=== PATIENT | female | born 2000 | race Caucasian/White ===

== ENCOUNTER 2018-01-09 15:50 | Emergency (ER) | payer BC ==
[2018-01-09] MEDS ORDERED: Sodium Chloride 0.9% 1000 ML 1,000 ML IV STA (16:25)
[2018-01-09] MEDS ORDERED: Sodium Chloride 0.9% 1000 ML 1,000 ML ONE (16:27)
[2018-01-09 16:34] VITALS: O2SAT 99
[2018-01-09 16:36] LABS: BASOPHIL % 0.3 % (0.0-0.4); Basophil (Absolute #) 0.02 (0-0.4); Eosinophil % 1.1 % (0.00-5.0); Eosinophil (Absolute #) 0.07 (0-0.5); Granulocyte Absolute (ANC) 3.57 (1.4-6.9); Granulocytes % 57.5 % (36.0-66.0); Hematocrit 40.1 % (35-47); Hemoglobin 14.4 gm/dl (12.0-16.0); Lymphocyte (Absolute #) 2.13 (1.0-4.6); Lymphocytes % 34.2 % (24.0-44.0); Mean Cell Volume 89.5 fl (78-100); Mean Corpuscular Hemoglobin 32.1 pg (26-32); Mean Corpuscular Hgb Concent. 35.9 g/dl (32-36); Monocyte (Absolute #) 0.43 (0.0-1.3); Monocytes % 6.9 % (0.0-12.0); Platelet Count 196 K/mm3 (150-450); Red Blood Count 4.48 M/mm3 (4.1-5.4); Red Cell Distribution Width 11.5 % (11.5-14.0); White Blood Count 6.2 K/mm3 (4.0-10.5)
[2018-01-09 16:41] LABS: Appearance CLEAR (CLEAR); Specific Gravity 1.005 (1.005-1.025)
[2018-01-09 16:42] LABS: Bilirubin NEGATIVE (NEGATIVE); Blood NEGATIVE Ery/ul (0-5); Glucose NEGATIVE (NEGATIVE); Ketones NEGATIVE (NEGATIVE); Leukocyte Esterase NEGATIVE (NEGATIVE); Nitrite NEGATIVE (NEGATIVE); Ph 7.5 (5-6); Protein,Urine Dip NEGATIVE (Negative); Urobilinogen NORMAL mg/dL (0-1)
--- NOTE | 2018-01-09 16:43 | ERPHSYRPT ---
- History of Present Illness Time Seen by Provider: 01/09/18 16:22 Historian: patient Exam Limitations: no limitations Patient Subjective Stated Complaint: PT HERE FOR RIGHT LOWER ABD PAIN SINCE YESTERDAY, WORSE WITH MOVEMENT Triage Nursing Assessment: PT ALERT, RESP EASY. SKIN W/D/P. ANBD SOFT, TENDER TO PALPATE Physician History: -This is a 17-year-old white female previously healthy arrives with complaint of right lower quadrant pain, described as sharp worse with movement symptoms since yesterday. She denies any vomiting she does state that she's been had one loose stool. She denies any urinary symptoms. No vaginal discharge. Past medical history negative Past surgical history wisdom teeth Social history patient denies tobacco alcohol or illicit drug use. Timing/Duration: yesterday Activities at Onset: none Quality: sharpness Abdominal Pain Onset Location: RLQ Pain Radiation: no radiation Severity of Pain-Max: moderate Severity of Pain-Current: mild Modifying Factors: Improves With: breathing Associated Symptoms: diarrhea, No back, No chest pain, No diaphoresis, No fever/ chills, No fatigue, No headache, No heartburn, No loss of appetite, No nausea, No neck pain, No rash, No shortness of breath, No syncope, No weakness Previous symptoms: no prior history Allergies/Adverse Reactions: Sulfa (Sulfonamide Antibiotics) Allergy (Verified 01/09/18 16:11) Home Medications: Ferrous Sulfate, Dried [Iron] 159 mg DAILY 01/09/18 [History] Hx Tetanus, Diphtheria Vaccination/Date Given: Yes Hx Influenza Vaccination/Date Given: No Hx Pneumococcal Vaccination/Date Given: No Immunizations Up to Date: Yes - Review of Systems Constitutional: No Fever, No Chills Eyes: No Symptoms Ears, Nose, & Throat: No Symptoms Respiratory: No Cough, No Dyspnea Cardiac: No Chest Pain, No Edema, No Syncope Abdominal/Gastrointestinal: Abdominal Pain (right lower quadrant abdominal pain) , Diarrhea, No Nausea, No Vomiting, No Constipation, No Hematemesis Genitourinary Symptoms: No Symptoms Musculoskeletal: No Back Pain, No Neck Pain Skin: No Rash Neurological: No Dizziness, No Focal Weakness, No Sensory Changes Psychological: No Symptoms Endocrine: No Symptoms All Other Systems: Reviewed and Negative - Past Medical History Pertinent Past Medical History: No Neurological History: No Pertinent History ENT History: No Pertinent History Cardiac History: No Pertinent History Respiratory History: No Pertinent History Endocrine Medical History: No Pertinent History Musculoskeletal History: No Pertinent History GI Medical History: No Pertinent History History: No Pertinent History Psycho-Social History: No Pertinent History Female Reproductive Disorders: No Pertinent History - Past Surgical History Past Surgical History: Yes Other Surgical History: WISDON TEETH - Social History Smoking Status: Never smoker Exposure to second hand smoke: No Drug Use: none Patient Lives Alone: No - Female History Hx Last Menstrual Period: DECEMBER Hx Now: No - Nursing Vital Signs Nursing Vital Signs: Initial Vital Signs Temperature 98.0 F 01/09/18 16:06 Pulse Rate 49 L 01/09/18 16:06 Respiratory Rate 16 01/09/18 16:06 Blood Pressure 120/67 01/09/18 16:06 O2 Sat by Pulse Oximetry 98 01/09/18 16:06 Pain Scale Pain Intensity 2 - Physical Exam General Appearance: mild distress, alert Eye Exam: PERRL/EOMI, eyes nml inspection Ears, Nose, Throat Exam: normal ENT inspection, pharynx normal, moist mucous membranes Neck Exam: normal inspection, non-tender, supple, full range of motion Respiratory Exam: normal breath sounds, lungs clear, No respiratory distress Cardiovascular Exam: regular rate/rhythm (Him), normal heart sounds Gastrointestinal/Abdomen Exam: soft, normal bowel sounds, tenderness (right lower quadrant tenderness with palpation) Back Exam: normal inspection, normal range of motion, No CVA tenderness, No vertebral tenderness Extremity Exam: normal inspection, normal range of motion, pelvis stable Neurologic Exam: alert, oriented x 3, cooperative, mutual funds agent II-XII nml as tested, normal mood/affect, nml cerebellar function, sensation nml, No motor deficits Skin Exam: normal color, warm, dry SpO2 Interpretation: normal (99%) SpO2: 99 Oxygen Delivery: Room Air - Course Nursing assessment & vital signs reviewed: Yes - CT Exams Abdomen/Pelvis CT Interpretation: Tele-radiologist Report (CT of the abdomen and pelvis: Impression normal appendix . Small right ovarian cyst with moderate free fluid in the pelvis. May represent an ovarian hemorrhagic cyst. No other acute abnormality.) Ordered Tests: Active Orders 24 hr Category Date Time Status IV Insertion STAT Care 01/09/18 16:25 Active ABDOMEN AND PELVIS W CONTRAST [CT] Stat Exams 01/09/18 17:20 Taken AMYLASE Stat Lab 01/09/18 16:25 Completed CBC W DIFF Stat Lab 01/09/18 16:25 Completed CMP Stat Lab 01/09/18 16:25 Completed HCG QUALITATIVE,SERUM Stat Lab 01/09/18 Completed LIPASE Stat Lab 01/09/18 16:25 Completed UA W/RFX UR CULTURE Stat Lab 01/09/18 16:30 Completed Medication Summary Discontinued Medications Generic Name Dose Route Start Last Admin Trade Name Bianka PRN Reason Stop Dose Admin Sodium Chloride 1,000 mls @ 999 mls/hr 01/09/18 16:25 01/09/18 19:25 Sodium Chloride 0.9% 1000 Ml IV 01/09/18 17:25 Infused .Q1H1M STA Infusion Sodium Chloride Confirm 01/09/18 16:27 Sodium Chloride 0.9% 1000 Ml Administered 01/09/18 16:28 Dose 1,000 mls @ ud .ROUTE .STK-MED ONE Lab/Rad Data: Laboratory Result Diagrams 01/09/18 16:25 01/09/18 16:25 Laboratory Results 01/09/18 01/09/18 01/09/18 Range/Units Unknown 16:30 16:25 WBC (4.0-10.5) K/mm3 RBC (4.1-5.4) M/mm3 Hgb (12.0-16.0) gm/dl Hct (35-47) % MCV (78-100) fl MCH (26-32) pg MCHC (32-36) g/dl RDW (11.5-14.0) % Plt Count (150-450) K/mm3 MPV (6-9.5) fl Gran % (36.0-66.0) % Eos # (Auto) (0-0.5) Absolute Lymphs (auto) (1.0-4.6) Absolute Monos (auto) (0.0-1.3) Lymphocytes % (24.0-44.0) % Monocytes % (0.0-12.0) % Eosinophils % (0.00-5.0) % Basophils % (0.0-0.4) % Absolute Granulocytes (1.4-6.9) Basophils # (0-0.4) Sodium 141 (137-145) mmol/L Potassium 3.6 (3.5-5.1) mmol/L Chloride 102 (98-107) mmol/L Carbon Dioxide 26 (22-30) mmol/L Anion Gap 16.2 H (5-15) MEQ/L BUN 10 (7-17) mg/dL Creatinine 0.62 (0.52-1.04) mg/dL Estimated GFR > 60.0 ML/MIN Glucose 89 (74-106) mg/dL Calcium 9.7 (8.4-10.2) mg/dL Total Bilirubin 1.30 (0.2-1.3) mg/dL AST 28 (14-36) U/L ALT 18 (0-35) U/L Alkaline Phosphatase 63 (38-126) U/L Serum Total Protein 7.9 (6.3-8.2) g/dL Albumin 4.9 (3.5-5.0) g/dL Amylase 44 (30-110) U/L Lipase 30 (23-300) U/L Serum , Qual NEGATIVE (Negative) Ur Collection Type VOID Urine Color LT.YELLOW (YELLOW) Urine Appearance CLEAR (CLEAR) Urine pH 7.5 (5-6) Ur Specific [place] 1.005 (1.005-1.025) Urine Protein NEGATIVE (Negative) Urine Ketones NEGATIVE (NEGATIVE) Urine Blood NEGATIVE (0-5) Richard/ul Urine Nitrite NEGATIVE (NEGATIVE) Urine Bilirubin NEGATIVE (NEGATIVE) Urine Urobilinogen NORMAL (0-1) mg/dL Ur Leukocyte Esterase NEGATIVE (NEGATIVE) Urine Culture Reflexed NO (NO) Urine Glucose NEGATIVE (NEGATIVE) mg/dL Specimen Received 01/09 1640 01/09/18 Range/Units 16:25 WBC 6.2 (4.0-10.5) K/mm3 RBC 4.48 (4.1-5.4) M/mm3 Hgb 14.4 (12.0-16.0) gm/dl Hct 40.1 (35-47) % MCV 89.5 (78-100) fl MCH 32.1 H (26-32) pg MCHC 35.9 (32-36) g/dl RDW 11.5 (11.5-14.0) % Plt Count 196 (150-450) K/mm3 MPV 10.0 H (6-9.5) fl Gran % 57.5 (36.0-66.0) % Eos # (Auto) 0.07 (0-0.5) Absolute Lymphs (auto) 2.13 (1.0-4.6) Absolute Monos (auto) 0.43 (0.0-1.3) Lymphocytes % 34.2 (24.0-44.0) % Monocytes % 6.9 (0.0-12.0) % Eosinophils % 1.1 (0.00-5.0) % Basophils % 0.3 (0.0-0.4) % Absolute Granulocytes 3.57 (1.4-6.9) Basophils # 0.02 (0-0.4) Sodium (137-145) mmol/L Potassium (3.5-5.1) mmol/L Chloride (98-107) mmol/L Carbon Dioxide (22-30) mmol/L Anion Gap (5-15) MEQ/L BUN (7-17) mg/dL Creatinine (0.52-1.04) mg/dL Estimated GFR ML/MIN Glucose (74-106) mg/dL Calcium (8.4-10.2) mg/dL Total Bilirubin (0.2-1.3) mg/dL AST (14-36) U/L ALT (0-35) U/L Alkaline Phosphatase (38-126) U/L Serum Total Protein (6.3-8.2) g/dL Albumin (3.5-5.0) g/dL Amylase (30-110) U/L Lipase (23-300) U/L Serum , Qual (Negative) Ur Collection Type Urine Color (YELLOW) Urine Appearance (CLEAR) Urine pH (5-6) Ur Specific [place] (1.005-1.025) Urine Protein (Negative) Urine Ketones (NEGATIVE) Urine Blood (0-5) Richard/ul Urine Nitrite (NEGATIVE) Urine Bilirubin (NEGATIVE) Urine Urobilinogen (0-1) mg/dL Ur Leukocyte Esterase (NEGATIVE) Urine Culture Reflexed (NO) Urine Glucose (NEGATIVE) mg/dL Specimen Received - Progress Progress: improved Progress Note: 01/09/18 19:51 17-year-old white female arrives with complaint of pain in the right lower quadrant symptoms since yesterday. Patient is tender in the right lower quadrant with palpation. Patient's labs are essentially negative. CT of the abdomen remarkable for normal appendix, small right ovarian cyst with moderate free fluid in the pelvis. May represent an ovarian hemorrhagic cyst no other acute abnormality. I discussed case with Dr. Nguyen admissions manager for the patient's physician. He recommends patient can be discharged with follow-up with her family doctor I have offered the patient pain medication she states she really doesn't want any Will discharge patient. - Departure Time of Disposition: 19:52 Departure Disposition: Home Clinical Impression: Right lower quadrant abdominal pain, Ruptured ovarian cyst Condition: Fair Critical Care Time: No Referrals: WILL GALAN [Primary Care Provider] - Additional Instructions: Return home. Plenty of fluids. Tylenol every 4 hours or Advil every 6 hours as needed for pain. Follow-up with your family doctor. Return for acute distress or for severe symptoms.
[2018-01-09 17:01] LABS: ALBUMIN 4.9 g/dL (3.5-5.0); ALKALINE PHOSPHATASE 63 U/L (38-126); AMYLASE 44 U/L (30-110); ANION GAP 16.2 MEQ/L (5-15); BLOOD UREA NITROGEN 10 mg/dL (7-17); CHLORIDE 102 mmol/L (98-107); Calcium 9.7 mg/dL (8.4-10.2); Carbon Dioxide 26 mmol/L (22-30); Creatinine 1 0.62 mg/dL (0.52-1.04); Glucose 89 mg/dL (74-106); LIPASE 30 U/L (23-300); Potassium 3.6 mmol/L (3.5-5.1); SGOT/AST 28 U/L (14-36); SGPT/ALT 18 U/L (0-35); SODIUM 141 mmol/L (137-145); Total Protein 7.9 g/dL (6.3-8.2)
[2018-01-09 20:02] VITALS: BP 120/68; PULSE 52
--- NOTE | 2018-01-09 21:46 | XRAY ---
Indication: Right lower quadrant pain. Multiple contiguous axial images obtained through the abdomen and pelvis using 80 cc Isovue 370 contrast and PE protocol. Comparison: None. Lung bases are clear. Heart is not enlarged. Noncontrasted stomach and bowel loops appear nonobstructed. Normal appendix. There is mild/moderate cul-de-sac fluid. No wall fluid collection or free air. 12 mm right ovary cyst. Remaining liver, gallbladder, pancreas, spleen, adrenal glands, kidneys, ureters, bladder, uterus, and aorta appear unremarkable. No pathologic retroperitoneal lymphadenopathy. Osseous structures intact. Impression: 1. 12 mm right ovary cyst and cul-de-sac fluid presumed from rupture/leaking cyst. Pelvic sonogram may yield further information if clinically warranted. 2. Remaining CT abdomen/pelvis with contrast exam negative. Comment: Preliminary interpretation was made by [facility]. No critical discrepancy. CTDI 8.27
== END 2018-01-09 20:09 | disposition home or self-care (01) ==
LOC: ED 15:50
DX: R10.31 Right lower quadrant pain (principal); N83.201 Unspecified ovarian cyst, right side
CPT/HCPCS: 36000; 36415; 74177; 80053; 81002; 82150; 83690; 84703; 85025; 96360; 99284